=== PATIENT | male | born 1965 | race Caucasian/White ===

== ENCOUNTER 2020-08-19 19:33 | Inpatient (IN) | payer OTHER ==
[~2020-08-19] VITALS: Ht 182.9 cm; Wt 101.6 kg
--- NOTE | ~2020-08-19 | PROC ---
[address] [address] PROCEDURE REPORT Name: VU SINGH Room: [address] IN M.R.#: [id number] Admission: 08/21/20 Attend Phys: Alexandro Schulte MD Discharge: 08/22/20 Date of : 61 Report #: [id number] THIS REPORT FOR: cc: ETHEL SAHA MD, CHADWICK MD ~ [facility],Medical Records Staff For GI report, please see the Provation report in Perceptive 7 content. By: [id number] Records Staff [facility] /GEETA
[~2020-08-19 19:33] MED LIST: ALBUTEROL INHAL17 GM IH; AZITHROMYCIN 2250 MG PO; FLEXERIL PO; NAPROSYN375 MG PO; NOHOMEMEDICATIONS
[2020-08-19 19:45] VITALS: BP 127/68
[2020-08-19 20:03] LABS: HEMATOCRIT 43.7 % (42.0-52.0); HEMOGLOBIN 14.6 gm/dL (14.0-18.0); MCH 27.7 pg (26.0-34.0); MCHC 33.4 g/dL (28.0-37.0); MCV 82.7 fL (80.0-100.0); MPV 7.7 fl. (7.2-11.1); NUCLEATED RBCS 0 /100WBC; PLATELET COUNT* 261 thou/uL (150-400); RBC 5.28 mil/uL (4.50-6.00); RDW-CV 14.3 % (10.5-14.5); WBC 15.6 thou/uL (4.0-11.0)
[2020-08-19 20:10] LABS: CALCIUM 7.9 mg/dL (8.5-10.1); CREATININE 1.1 mg/dL (0.6-1.3); POTASSIUM 3.3 mmol/L (3.5-5.1)
[2020-08-19 20:15] LABS: ALBUMIN 3.2 g/dL (3.4-5.0); MAGNESIUM 1.6 mg/dL (1.8-2.4); TOTAL BILIRUBIN 0.6 mg/dL (<0.1-1.0); TOTAL PROTEIN 7.5 g/dL (6.4-8.2)
[2020-08-19 20:32] LABS: ABSOLUTE LYMPHOCYTES 0.8 thou/uL (0.8-5.3); ABSOLUTE MONOCYTES 0.8 thou/uL (0.0-1.2)
[2020-08-19 20:33] LABS: PLATELET ESTIMATE ADEQUATE
[2020-08-19 23:02] VITALS: BP 130/70
[2020-08-19 23:25] VITALS: BP 122/56
[2020-08-20 07:09] LABS: MAGNESIUM 1.8 mg/dL (1.8-2.4); POTASSIUM 3.8 mmol/L (3.5-5.1)
[2020-08-20 07:45] VITALS: BP 87/45
[2020-08-20 13:47] LABS: ALBUMIN 2.8 g/dL (3.4-5.0); POTASSIUM 3.6 mmol/L (3.5-5.1); TOTAL BILIRUBIN 0.5 mg/dL (<0.1-1.0)
--- NOTE | 2020-08-20 14:57 | EKG ---
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
[2020-08-20 15:54] VITALS: BP 104/69
--- NOTE | 2020-08-20 17:07 | CON ---
[address] [address] CONSULTATION Name: SAMANTHAVU SCHAEFER Room: [address] MJodieR.#: [id number] Admission: 08/19/20 Attend Phys: Alexandro Schulte MD Discharge: Date of : 61 Report #: [id number] THIS REPORT FOR: //name// cc: ETHEL SAHA MD, CHADWICK MD ~ DATE OF SERVICE: 08/20/2020 Please note at the time of this dictation, the patient was seen and physically examined by myself. REASON FOR CONSULTATION: Abdominal pain. HISTORY OF PRESENT ILLNESS: This is a 55-year-old male who presented to the Emergency Room with having some abdominal pain associated with some nausea and vomiting and he did have some episodes of bright red blood with his vomiting as well. He also describes that he has been having difficulty swallowing and that has been ongoing for some time. He describes it more with breads and meats. He does not take anything for acid reflux or complain of anything with acid reflux. He also states his bowels prior to the abdominal pain and loose stools to diarrhea. His bowels were moving soft and formed on a regular basis with no bright red blood or melanotic stool was noted. Since the abdominal pain started yesterday, he has had 3 loose stools yesterday and only one so far today. The patient did state years ago, he did have an EGD and colonoscopy at [facility]. He states he thinks he had polyps removed and his throat was stretched at that time as well. ALLERGIES: No known drug allergies. MEDICATIONS: From home include naproxen, which he is no longer taking. Otherwise, negative. PAST MEDICAL HISTORY: Asthma. PAST SURGICAL HISTORY: He has got pins in his right wrist. FAMILY HISTORY: Negative for any GI or female cancers. SOCIAL HISTORY: Denies any alcohol, tobacco or illegal drug use. REVIEW OF SYSTEMS: Twelve-point review of systems is essentially negative except what is mentioned in the HPI. PHYSICAL EXAMINATION: VITAL SIGNS: Temperature 38.1, pulse 78, respirations 18, blood pressure 90/45. [place] [address] CONSULTATION Name: VU SINGH Room: [address] M.R.#: [id number] Admission: 08/19/20 Attend Phys: Alexandro Schulte MD Discharge: Date of : 61 Report #: [id number] HEART: Regular rate and rhythm. LUNGS: Diminished, but clear. He does have a nonproductive cough. ABDOMEN: Soft, positive bowel sounds in all 4 quadrants with some upper tenderness noted to palpation. LABORATORY DATA: Hemoglobin 14.6, white count is 15.6, platelets are 261. Lipase is 71. GFR 69. His LFTs are completely normal. CT of the abdomen and pelvis showed mild right-sided colitis with gaseous distention in the transverse region of the colon. IMPRESSION: 1. Nausea and vomiting, improved. 2. Hematemesis. 3. Dysphagia. 4. Diarrhea. 5. Abdominal pain. 6. Abnormal CT, right-sided colitis. 7. Leukocytosis. PLAN: 1. EGD and colonoscopy tomorrow with Dr. Salazar. 2. Obtain medical records from [facility] including EGD, colonoscopy, and pathology. 3. Further recommendations to be made once the procedure has been performed. Thank you for allowing us to participate in this patient's care. Please do not hesitate to call with any questions in regard to this consult. <ELECTRONICALLY SIGNED> By: Stuart Salazar DO 08/20/20 1707 1139 [id number] Salazar DO /nt
[2020-08-20 20:00] VITALS: BP 122/66
[2020-08-21 05:30] LABS: ABSOLUTE EOSINOPHILS 0.1 thou/uL (0.0-0.7); ABSOLUTE LYMPHOCYTES 0.9 thou/uL (0.8-5.3); ABSOLUTE MONOCYTES 0.5 thou/uL (0.0-1.2); ABSOLUTE NEUTROPHILS 5.9 thou/uL (1.6-8.1); BASOPHILS 0.3 %; EOSINOPHILS 1.1 %; HEMATOCRIT 36.8 % (42.0-52.0); LYMPHOCYTES 11.8 %; MCH 27.5 pg (26.0-34.0); MCHC 33.3 g/dL (28.0-37.0); MCV 82.5 fL (80.0-100.0); MONOCYTES 6.6 %; MPV 8.4 fl. (7.2-11.1); NUCLEATED RBCS 0 /100WBC; PLATELET COUNT* 201 thou/uL (150-400); POLYS 80.2 %; RBC 4.46 mil/uL (4.50-6.00); RDW-CV 14.4 % (10.5-14.5); WBC 7.4 thou/uL (4.0-11.0)
[2020-08-21 05:34] LABS: HEMOGLOBIN 12.3 gm/dL (14.0-18.0)
[2020-08-21 05:38] LABS: ALBUMIN 2.6 g/dL (3.4-5.0); CALCIUM 8.4 mg/dL (8.5-10.1); CREATININE 0.9 mg/dL (0.6-1.3); POTASSIUM 3.3 mmol/L (3.5-5.1); TOTAL BILIRUBIN 0.4 mg/dL (<0.1-1.0); TOTAL PROTEIN 6.2 g/dL (6.4-8.2)
[2020-08-21 06:40] LABS: ESR (SEDRATE) 20 mm/hr (0-20)
[2020-08-21 07:30] VITALS: BP 122/73
[2020-08-21 15:38] VITALS: BP 115/64
[2020-08-21 20:00] VITALS: BP 130/70
[2020-08-22 00:38] VITALS: BP 126/63
[2020-08-22 08:30] VITALS: BP 106/81
[2020-08-22] MEDS ORDERED: PROTONIX40 M2 PO (15:28)
[2020-08-22] MEDS ORDERED: FLAGYL500 M1 PO (15:29)
[2020-08-22] MEDS ORDERED: AMBIEN 10 MG TA10 MG PO (15:31)
[2020-08-22 15:39] VITALS: BP 106/81
[2020-08-22 16:20] VITALS: BP 106/81
[2020-08-22 16:27] VITALS: BP 106/81
--- NOTE | 2020-08-28 19:06 | PATH ---
[address] [address] PATHOLOGY RPT PROCEDURE Name: SAMANTHAMAXWELL SCHAEFER Room: [address] IN M.R.#: [id number] Admission: 08/21/20 Date of : 61 Discharge: 08/22/20 Report #: [id number] Path Case #: [id number] [facility] Accession Number: [id number] . 01 Material submitted: . PART A: stomach - ANTRAL BIOPSY - R/O H. PYLORI PART B: ileum - TERMINAL ILEUM PART C: cecum - CECUM PART D: colon - POLYP ASCENDING COLON - HOT. Modifiers: ascending PART E: colon - ASCENDING COLON POLYP - HOT. Modifiers: ascending PART F: colon - PROXIMAL TRANSVERSE COLON. Modifiers: proximal, transverse . 01 Clinical history: . COLITIS, VOMITING, DIARRHEA . 02 Diagnosis: A. Antral biopsy: - Mild nonspecific chronic antral gastritis, negative for Helicobacter pylori organisms and dysplasia. . B. Terminal ileum: - Mild nonspecific active ileitis in association with conspicuous lymphoid aggregate(s)/Peyer's patch(s), negative for granulomas, viral inclusions, and dysplasia. See comment. . C. Cecum: - Moderate nonspecific active colitis with suggestion of chronic colitis, negative for dysplasia, viral inclusions, and definite granulomas. See comment. . D. Polyp ascending colon (hot): - Tubular adenoma, negative for high-grade dysplasia. . E and F. Tissue submitted as "ascending colon polyp - hot" and proximal transverse colon: - Chronic active colitis, negative for viral inclusions and dysplasia/adenomatous change. See comment. . (MARTHA:[facility] 08/23/2020) [facility] 08/23/2020 1630 Local . 02 Comment: The terminal ileum biopsy (B) shows predominantly a prominent lymphoid aggregate(s) as well as active cryptitis and this limits evaluation for the presence or absence of chronic inflammation. In specimens C, E and F, there is, at most, minimal basal lymphoplasmacytosis and the cecum biopsy shows some crypt "drop out" suggestive of chronic inflammation whereas the "[place] [address] PATHOLOGY RPT PROCEDURE Name: MAXWELL SINGH Room: [address] DIS IN M.R.#: [id number] Admission: 08/21/20 Date of : 61 Discharge: 08/22/20 Report #: [id number] Path Case #: [id number] colon polyp" and proximal transverse colon biopsies (E and F) show prominent crypt distortion and crypt drop out indicative of chronic inflammation. No definite granulomas are seen, however, in both specimens E and F there is a vague epitheloid granulomatous appearance to the infiltrate. Ischemic features are not apparent and no inflammatory pseudomembranes are seen. Properly controlled GMS and [place]'s stains will be performed on specimens E and F for the possibility of infectious cases and will be the subject of an addendum report. The histologic differential also includes inflammatory bowel disease/Crohn's disease. (MARTHA:[facility] 08/23/2020) . 02 Addendum: . This addendum is submitted to convey the results of special stains performed on the ascending colon polyp (block E1) and the biopsy from the proximal transverse colon (block F1). . Immunohistochemical stain results (properly controlled): GMSF (E1, F1) - negative for fungal and hyphal forms. AFB (E1, F1) - negative for organisms. . The stains fail to identify fungal/hyphal forms or acid-fast bacilli. The diagnosis remains as previously rendered, with the differential diagnosis including infectious etiologies (despite negative tissue stains for organisms), and idiopathic inflammatory bowel disease. Clinical correlation is suggested. . (MLK:joshua; 08/28/2020) . Professional services performed by [facility] at [facility] [place] [address]. Technical services performed by [facility] at [address] [place] [address], [address], [place] [address]. LBQ/08/28/2020 Addendum Electronically Signed by Conchis Sanchez MD, Pathologist . 02 Electronically signed: . Giovani Adams MD, Pathologist NPI- [id number] . 01 Gross description: . A. The specimen is received in formalin, labeled "Maxwell Singh, antral biopsy for H. pylori". Received is a segment of pale meraz soft tissue measuring 0.4 cm in maximum dimensions. The specimen is submitted entirely in cassette A1. . B. The specimen is received in formalin, labeled "Maxwell Singh, terminal ileum". Received are two segments of pale meraz soft tissue ranging in size from 0.3 to 0.4 cm in maximum dimensions. The specimen is submitted entirely in cassette B1. . [place] [id number] PATHOLOGY RPT PROCEDURE Name: MAXWELL SINGH Room: [address] IN ..#: [id number] Admission: 08/21/20 Date of : 61 Discharge: 08/22/20 Report #: [id number] Path Case #: [id number] C. The specimen is received in formalin, labeled "Maxwell Singh, cecum". Received are two segments of pale meraz soft tissue ranging in size from 0.3 to 0.5 cm in maximum dimensions. The specimen is submitted entirely in cassette C1. . D. The specimen is received in formalin, labeled "Maxwell Singh, polyp proximal ascending colon". Received are multiple segments of pale meraz soft tissue ranging in size from 0.2 to 0.5 cm in maximum dimensions. The specimen is submitted entirely in cassette D1. . E. The specimen is received in formalin, labeled "Maxwell Singh, ascending colon polyp". Received are two segments of pale meraz soft tissue ranging in size from 0.3 to 0.4 cm in maximum dimensions. The specimen is submitted entirely in cassette E1. . F. The specimen is received in formalin, labeled "Maxwell Singh, proximal transverse colon". Received are two segments of pale meraz soft tissue ranging in size from 0.3 to 0.4 cm in maximum dimensions. The specimen is submitted entirely in cassette F1. (CAA; 08/22/2020) QAC/QAC 08/23/2020 1240 Local . 02 Pathologist provided ICD-10: K29.50, K52.9, D12.2 . 02 CPT . 238069, 586284, 928741, 504103, 532684, 436393, F36385, 352474, 474330, 180863, 142569 Specimen Comment: A courtesy copy of this report has been sent to [phone] Specimen Comment: [phone], Specimen Comment: Report sent to ,DR MELGOZA / DR SAHA Performed at: [address] [facility] [address], [place], [place] [id number] MD Anam Murphy MD Phone: [phone] Performed at: 02 [facility] [address], [place] [id number] MD Giovani Adams MD Phone: [phone]
== END 2020-08-22 16:16 | disposition home or self-care (01) | DRG 371 ==
LOC: M.ERS 19:33 → M.3W 22:00 → M.TBA-ER 22:00 → M.3W 23:06
PROVIDERS: Emergency Medicine; Internal Medicine; Internal Medicine Gastroenterology; ADMIT Internal Medicine; ATTEND Internal Medicine
PROC: 0DBK8ZX Excision of Ascending Colon, Via Natural or Artificial Opening Endoscopic, Diagnostic (ICD-10-PCS; principal; 2020-08-21)
PROC: 0DBK8ZZ Excision of Ascending Colon, Via Natural or Artificial Opening Endoscopic (ICD-10-PCS; principal; 2020-08-21)
PROC: 0DBH8ZX Excision of Cecum, Via Natural or Artificial Opening Endoscopic, Diagnostic (ICD-10-PCS; principal; 2020-08-21)
PROC: 0DBL8ZX Excision of Transverse Colon, Via Natural or Artificial Opening Endoscopic, Diagnostic (ICD-10-PCS; principal; 2020-08-21)
PROC: 0DBB8ZX Excision of Ileum, Via Natural or Artificial Opening Endoscopic, Diagnostic (ICD-10-PCS; principal; 2020-08-21)
PROC: 0DB68ZX Excision of Stomach, Via Natural or Artificial Opening Endoscopic, Diagnostic (ICD-10-PCS; principal; 2020-08-21)
DX: A04.9 Bacterial intestinal infection, unspecified (principal); K22.11 Ulcer of esophagus with bleeding; K26.4 Chronic or unspecified duodenal ulcer with hemorrhage; K57.31 Diverticulosis of large intestine without perforation or abscess with bleeding; E44.0 Moderate protein-calorie malnutrition; R65.10 Systemic inflammatory response syndrome (SIRS) of non-infectious origin without acute organ dysfunction; G47.00 Insomnia, unspecified; R13.10 Dysphagia, unspecified; K58.0 Irritable bowel syndrome with diarrhea; D72.829 Elevated white blood cell count, unspecified; K44.9 Diaphragmatic hernia without obstruction or gangrene; K64.4 Residual hemorrhoidal skin tags; Z20.828 Contact with and (suspected) exposure to other viral communicable diseases; J45.909 Unspecified asthma, uncomplicated; K22.2 Esophageal obstruction; D12.2 Benign neoplasm of ascending colon

== ENCOUNTER 2020-12-23 14:03 | Emergency (ER) | payer OTHER ==
[~2020-12-23] VITALS: Ht 182.9 cm; Wt 90.7 kg
[~2020-12-23 14:03] MED LIST changes: +AMBIEN 10 MG TA10 MG PO; +FLAGYL500 M1 PO; +PROTONIX40 M2 PO
[2020-12-23 14:48] LABS: ABSOLUTE BASOPHILS 0.1 thou/uL (0.0-0.2); ABSOLUTE EOSINOPHILS 0.1 thou/uL (0.0-0.7); ABSOLUTE LYMPHOCYTES 1.6 thou/uL (0.8-5.3); ABSOLUTE MONOCYTES 0.7 thou/uL (0.0-1.2); ABSOLUTE NEUTROPHILS 8.4 thou/uL (1.6-8.1); BASOPHILS 0.8 %; EOSINOPHILS 1.1 %; HEMATOCRIT 42.1 % (42.0-52.0); LYMPHOCYTES 14.6 %; MCHC 33.1 g/dL (28.0-37.0); MCV 84.4 fL (80.0-100.0); MONOCYTES 6.5 %; MPV 8.1 fl. (7.2-11.1); NUCLEATED RBCS 0 /100WBC; PLATELET COUNT* 294 thou/uL (150-400); RBC 4.99 mil/uL (4.50-6.00)
[2020-12-23 14:57] LABS: CALCIUM 8.3 mg/dL (8.5-10.1); POTASSIUM 3.7 mmol/L (3.5-5.1)
[2020-12-23 15:01] LABS: ALBUMIN 3.6 g/dL (3.4-5.0); TOTAL BILIRUBIN 0.4 mg/dL (<0.1-1.0); TOTAL PROTEIN 7.3 g/dL (6.4-8.2)
[2020-12-23] MEDS ORDERED: LIDODERM1 EACH TOP (15:24)
[2020-12-23] MEDS ORDERED: NORCO5 PO (15:24)
[2020-12-23 15:38] VITALS: BP 114/73
--- NOTE | 2020-12-24 11:15 | EKG ---
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 : 1965 Requested By: Michael Cramer Order Number: [id number] MD: Dani Emanuel Measurements Intervals [place] Rate: 98 P: 32 KS: 171 QRS: 35 QRSD: 81 T: 29 QT: 342 QTc: 437 Interpretive Statements Sinus rhythm Compared to ECG 08/19/2020 19:58:31 Sinus tachycardia no longer present Electronically Signed On 12-24-2020 11:15:00 CDT by Dani Emanuel [email or web address] <ELECTRONICALLY SIGNED> By: Dani Emanuel MD, [facility] 12/24/20 1115 1422 142 Dani Emanuel MD, [facility] /EPI
== END 2020-12-23 15:39 | disposition home or self-care (01) ==
LOC: M.ERS 14:03
PROVIDERS: Emergency Medicine
DX: J84.89 Other specified interstitial pulmonary diseases (principal); J45.909 Unspecified asthma, uncomplicated